=== PATIENT | male | born 1985 | race Hispanic/Latino ===

== ENCOUNTER 2018-02-26 06:08 | Day surgery (SDC) | payer OTHER ==
[2018-02-25 09:14] VITALS: BMI 35.2
[2018-02-26] MEDS ORDERED: MethylPREDNISolone Depo 40 mg/ml Inj ONE (07:13)
[2018-02-26] MEDS ORDERED: Liquid Adhesive TOP ONE (07:13)
[2018-02-26] MEDS ORDERED: GELATIN SPONGE,ABSORB/PORCINE 1 EACH SPONGE TP ONE (07:13)
[2018-02-26] MEDS ORDERED: ceFAZolin IV 2 gm in Dextrose 2 GM/50 ML BAG IVPB ONE (07:13)
[2018-02-26] MEDS ORDERED: Vancomycin 1 g Inj ONE (07:14)
[2018-02-26] MEDS ORDERED: Thrombin Topical 5,000 Int Units Spray Kit ONE (07:14)
[2018-02-26] MEDS ORDERED: Bupivacaine HCl 0.25% PF (30 ml) Inj ONE (07:44)
[2018-02-26] MEDS ORDERED: Propofol 10 mg/ml Inj (20 ML) ONE ×9 (08:04→12:14)
[2018-02-26] MEDS ORDERED: Midazolam 2 MG/2 ML VIAL ONE (08:04)
[2018-02-26] MEDS ORDERED: Succinylcholine 200 mg/10 ml Inj IV ONE (08:09)
[2018-02-26] MEDS ORDERED: Lactated Ringer's 1,000 ML IV ONE ×2 (08:53→08:54)
[2018-02-26] MEDS ORDERED: Rocuronium 10 mg/ml (5 ml) ONE ×2 (09:21→10:24)
[2018-02-26] MEDS ORDERED: ePHEDrine 50 mg/ml Inj ONE (11:25)
[2018-02-26] MEDS ORDERED: Thrombin Topical 5,000 Int Units Spray Kit TOP ONE (11:48)
[2018-02-26] MEDS ORDERED: Absorbable Gelatin Sponge Size 100 TP ONE (11:48)
[2018-02-26] MEDS ORDERED: Lactated Ringer's 500 ML IV ONE ×2 (12:00→15:30)
[2018-02-26] MEDS ORDERED: Dexamethasone 4 mg/1 ml ONE (12:30)
[2018-02-26] MEDS ORDERED: Neostigmine 1:1000 (1 mg/ml) Inj ONE (12:34)
[2018-02-26] MEDS ORDERED: HYDROmorphone 1 mg/ml ISec ONE (13:06)
[2018-02-26] MEDS ORDERED: Lactated Ringer's 1,000 ML IV SCH (13:15)
[2018-02-26] MEDS ORDERED: Oxycodone/Acetaminophen 5/325 mg Tab PO PRN ×2 (14:29→14:31)
[2018-02-26] MEDS ORDERED: Oxycodone/Acetaminophen 5/325 mg Tab PO ONE (16:15)
[2018-02-26 16:35] VITALS: RESP 18
[2018-02-26 16:55] VITALS: O2SAT 97
[2018-02-26 18:00] VITALS: BP 124/78; PULSE 72; TEMP 97.6
--- NOTE | 2018-02-27 18:07 | RAD ---
Date of service: 02/26/2018 PROCEDURE: Intraoperative fluoroscopy HISTORY: ANTERIOR C-SPINE DISCECTOMY W/ FUSION C4-C5,C5-C6 COMPARISON: Not available TECHNIQUE: Intraoperative fluoroscopy was provided for anterior cervical fusion. Total time of fluoroscopy was 6.7 seconds. FINDINGS: Multiple fluoroscopic spot films are submitted. IMPRESSION: Fluoroscopy provided.
== END 2018-02-26 18:05 | disposition home or self-care (01) ==
LOC: H.OPSURG 06:08
PROVIDERS: ATTEND Orthopaedic Surgery Orthopaedic Surgery of the Spine
DX: M54.2 Cervicalgia (principal); M54.12 Radiculopathy, cervical region
CPT/HCPCS: 20930; 22551; 36415; 86850; 86900; 88304; C1713; J0330; J0690; J1030; J1100; J1170; J2250; J2405; J2704; J2710; J2765; J3010; J7030; J7120